=== PATIENT | female | born 1935 | race Caucasian/White ===

== ENCOUNTER 2017-04-13 08:15 | Emergency (ER) | payer MEDICARE, BC ==
[2017-04-13] MEDS ORDERED: methylPREDNISolone Sodium Succinate 125 MG/2 ML SDV IVPUSH ONE (09:02)
[2017-04-13] MEDS ORDERED: Albuterol/Ipratropium 3.0-0.5 MG/3 ML Neb Soln NEB ONE (09:09)
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
[2017-04-13] MEDS: Sodium Chloride 0.9% 10 ML Syringe FLUSH PRN ×2 (09:25→10:36)
[2017-04-13] MEDS ORDERED: Furosemide 40 MG/4 ML VIAL IVPUSH SCH (10:30)
[2017-04-13 10:39] VITALS: BP 183/81
[2017-04-13] MEDS ORDERED: cefTRIAXone 1 GM in Sodium Chloride 0.9% 50 ML IV ONE (10:45)
[2017-04-13] MEDS ORDERED: Azithromycin 500 MG in Sodium Chloride 0.9% 250 ML IV ONE (10:46)
--- NOTE | 2017-04-14 07:19 | CR ---
Two-view chest Comparison: None. Findings: There is a prominence of the insertion markings diffusely throughout the right lung. The f inding is concerning for a interstitial pneumonitis. The left lung is unremarkable. There is a small right pleural effusion. There is a hiatal hernia. The heart is normal size. There is mild vascular engorgement. Impression: 1. CHF. 2. Diffuse interstitial infiltrate right lung. The finding likely reflects a interstitial pneumoniti s. Correlation with prior studies would be useful.
[2017-04-14] MEDS ORDERED: Furosemide 40 MG/4 ML VIAL IVPUSH SCH (09:00)
== END 2017-04-13 11:29 ==
LOC: JP.ED 08:15
DX: J18.9 Pneumonia, unspecified organism (principal); E87.70 Fluid overload, unspecified; N28.9 Disorder of kidney and ureter, unspecified; D64.9 Anemia, unspecified; J90 Pleural effusion, not elsewhere classified; Z79.82 Long term (current) use of aspirin; Z79.899 Other long term (current) drug therapy; Z88.2 Allergy status to sulfonamides
CPT/HCPCS: 36415; 36600; 71020; 80053; 81001; 82803; 83880; 85025; 87040; 93005; 94640; 96365; 96366; 96368; 96375; 99285; J0456; J0696; J1940; J2930; J7050; J7620; 93010